=== PATIENT | male | born 1995 | race African-American/Black ===

== ENCOUNTER 2018-05-09 01:35 | Emergency (ER) | payer OTHER ==
[~2018-05-09] VITALS: Ht 175.3 cm; Wt 72.6 kg
[2018-05-09 01:45] VITALS: BP 120/66
[2018-05-09] MEDS ORDERED: BACTRIM DS TAB1 EAC1 ORAL (01:53)
[2018-05-09] MEDS ORDERED: MUPIROCIN22 GM TOPIC (01:53)
--- NOTE | 2018-05-09 01:54 | Emergency Room Report ---
History of Present Illness General Chief Complaint: Skin Rash/Abscess Source: Patient Present Illness HPI Is a 22-year-old male who is right-hand dominant. He presents with chief complaint of a possible bug bite to his right forearm. No sick for the last couple days but now swollen. Did not get to see her felt anything biting him. No fever chills but no drainage. Never had this problem before. Denies any other complaint. Minimal pain. [place] little itchy. Allergies: Uncoded Allergies: NUTS (Allergy, Unknown, 05/09/18) Patient History Past Medical History: see triage record, old chart reviewed Past Surgical History: none Pertinent Family History: none Social History: Denies: smoking Immunizations: other Reviewed Nursing Documentation: PMH: Agreed; PSxH: Agreed Nursing Documentation-PM Past Medical History: No Stated History Review of Systems Eye: Denies: eye pain, blurred vision ENT: Denies: ear pain, nose congestion, throat swelling Respiratory: Denies: cough, shortness of breath Cardiovascular: Denies: chest pain, palpitations Gastrointestinal: Denies: abdominal pain, diarrhea, nausea, vomiting Musculoskeletal: Denies: back pain, joint pain Skin: Denies: rash Neurological: Denies: headache, numbness Endocrine: Denies: increased thirst, increased urine Hematologic/Lymphatic: Denies: easy bruising All Other Systems: negative except mentioned in HPI Physical Exam Vital Signs Date Time Temp Pulse Resp B/P (MAP) Pulse Ox O2 Delivery O2 Flow Rate FiO2 05/09/18 01:42 98.6 67 16 120/66 98 98.6 vitals normal Sp02 EP Interpretation: reviewed, normal General Appearance: well appearing, no apparent distress, alert Head: normocephalic, atraumatic Eyes: bilateral eye PERRL, bilateral eye EOMI ENT: hearing grossly normal, normal pharynx Neck: full range of motion, supple, no meningismus Respiratory: chest non-tender, lungs clear, normal breath sounds Cardiovascular #1: regular rate, rhythm, no murmur Gastrointestinal: normal bowel sounds, non tender, no mass, no organomegaly, no bruit, non-distended Musculoskeletal: back normal, gait/station normal, normal range of motion, other - Right forearm: There is a raised area of about 4-5 cm with mild erythema. No fluctuant. No abscess seen. No crepitance. There is localized to the proximal forearm posteriorly. Full range of motion of the elbow and wrist. Sensation normal. Neurologic: alert, oriented x3 Psychiatric: mood/affect normal Skin: warm/dry Medical Decision Making Diagnostic Impression: Primary Impression: Cellulitis of forearm, right ER Course Patient with cellulitis to the right forearm. Most likely secondary to MRSA. No evidence of any abscess or necrotizing fasciitis. We'll discharge home. Last Vital Signs Date Time Temp Pulse Resp B/P (MAP) Pulse Ox O2 Delivery O2 Flow Rate FiO2 05/09/18 01:45 98.6 76 16 120/66 98 98.6 Status: improved Disposition: HOME, SELF-CARE Condition: Stable Scripts Mupirocin* (MUPIROCIN*) 22 Gm Oint...g. 1 APPLIC TOPIC THREE TIMES A DAY, #22 GM Prov: Shaheen Adams MD 05/09/18 Trimethoprim/Sulfamethoxazole 160/800* (BACTRIM DS TABLET*) 1 Each Tablet 1 TAB ORAL Q12H, #14 TAB 0 Refills Prov: Shaheen Adams MD 05/09/18 Additional Instructions: Follow-up with your doctor in 7 days. Return if worse. Clean area with hydrogen peroxide and then apply antibiotic ointment. Shaheen Adams MD May 09, 2018 01:54
[2018-05-09] MEDS ORDERED: Bactrim-DS 1 tab ORAL ONE (02:00)
[2018-05-09 02:05] VITALS: BP 120/66
== END 2018-05-09 02:06 | disposition home or self-care (01) ==
LOC: EMR 01:58
DX: L03.113 Cellulitis of right upper limb (principal)
CPT/HCPCS: 99283

== ENCOUNTER 2018-12-15 19:36 | Emergency (ER) | payer OTHER ==
[~2018-12-15] VITALS: Ht 175.3 cm; Wt 75.7 kg
[~2018-12-15 19:36] MED LIST: BACTRIM DS TAB1 EAC1 ORAL; MUPIROCIN22 GM TOPIC
--- NOTE | 2018-12-15 19:44 | NUR ---
ED Nurse Note: pt walked in c/o sore throat, headache and body aching x 1 day. temp 100.6 in triage. Pt is AO x 4times, c/o general weakness, on room air no distress. ERMD seen Pt at bedside.
[2018-12-15 19:56] VITALS: BP 128/57
[2018-12-15] MEDS ORDERED: Lidocaine 2% Visc 15ml soln ORAL ONE (20:15)
[2018-12-15] MEDS ORDERED: Acetaminophen 500mg (ES) tab ORAL ONE (20:15)
[2018-12-15] MEDS ORDERED: Dexamethasone 4mg/ml vial IM ONE (20:15)
--- NOTE | 2018-12-15 20:24 | Emergency Room Report ---
History of Present Illness General Chief Complaint: Sore Throat Source: Patient Present Illness HPI 23 YO Male presents to the ED C/O 04/27 in severity throat pain with tonsillar swelling and fevers x 2 days. Denies neck pain or stiffness. Reports CARDENAS, denies photophobia. Denies recent travel or ill contacts. Denies cough. pain exacerbated with eating and swallowing. Pt. reports generalized body aches and generalized fatigue. denies abdominal pain, nausea or vomiting. has been taking Motrin for pain and fever reduction how ever symptoms persist. Allergies: Uncoded Allergies: NUTS (Allergy, Unknown, 05/09/18) Patient History Past Medical History: see triage record Past Surgical History: none Pertinent Family History: none Reviewed Nursing Documentation: PMH: Agreed; PSxH: Agreed Nursing Documentation-PMH Past Medical History: No Stated History Review of Systems All Other Systems: negative except mentioned in HPI Physical Exam Vital Signs Date Time Temp Pulse Resp B/P (MAP) Pulse Ox O2 Delivery O2 Flow Rate FiO2 12/15/18 19:39 100.6 96 18 115/48 (70) 97 Room Air Sp02 EP Interpretation: reviewed, normal General Appearance: alert, GCS 15, non-toxic, mild distress Head: normocephalic, atraumatic Eyes: bilateral eye normal inspection, bilateral eye PERRL ENT: hearing grossly normal, normal voice, TMs + canals normal, uvula midline, moist mucus membranes, nasal congestion, tonsillar swelling, pharyngeal erythema , tonsillar exudate Neck: full range of motion, no meningismus, no bony tend Respiratory: lungs clear, normal breath sounds, no wheezing, speaking full sentences Cardiovascular #1: regular rate, rhythm Musculoskeletal: back normal, gait/station normal, normal range of motion, non- tender Neurologic: alert, oriented x3, responsive, motor strength/tone normal, sensory intact, speech normal, grossly normal Psychiatric: judgement/insight normal Skin: normal color, no rash, warm/dry, well hydrated Lymphatic: no adenopathy Medical Decision Making PA Attestation Dr. Mustafa is my supervising Physician whom patient management has been discussed with. Diagnostic Impression: Primary Impression: Pharyngitis, acute Qualified Codes: J02.0 - Streptococcal pharyngitis ER Course 23 YO Male presents to the ED C/O 04/27 in severity throat pain with tonsillar swelling and fevers x 2 days. Denies neck pain or stiffness. Reports CARDENAS, denies photophobia. Denies recent travel or ill contacts. Denies cough. pain exacerbated with eating and swallowing. Pt. reports generalized body aches and generalized fatigue. denies abdominal pain, nausea or vomiting. has been taking Motrin for pain and fever reduction how ever symptoms persist. Ddx considered but are not limited to: pharyngitis, strep, BANANA GRADER, ludwigs angina, URI Vital signs: Pt. has low grade fever and mild tachycardia H&PE are most consistent with: pharyngitis presumed strep. ORDERS: None required at this time as the diagnosis is clinical ED INTERVENTIONS: - Decadron 8mg - Tylenol 1g PO -Lidocaine PO DISCHARGE: At this time pt. is stable for d/c to home. Will provide printed patient care instructions, and any necessary prescriptions. Care plan and follow up instructions have been discussed with the patient prior to discharge. Last Vital Signs Date Time Temp Pulse Resp B/P (MAP) Pulse Ox O2 Delivery O2 Flow Rate FiO2 12/15/18 19:56 100.4 78 18 128/57 96 Room Air Status: improved Disposition: HOME, SELF-CARE Condition: Stable Scripts Acetaminophen* (TYLENOL EXTRA STRENGTH*) 500 Mg Tablet 500 MG ORAL Q6H PRN for Mild Pain/Temp > 100.5, #30 TAB 0 Refills Prov: Chata Conway 12/15/18 Lidocaine HCl 2% Viscous (Lidocaine HCl 2% Viscous) 100 Ml Solution 15 ML ORAL QID, #240 ML Prov: Chata Conway 12/15/18 Amoxicillin/Potassium Clav 875-125* (AUGMENTIN 875-125 TABLET*) 1 Each Tablet 1 TAB ORAL TWICE A DAY for 10 Days, #20 TAB Prov: Chata Conway 12/15/18 Patient Instructions: Strep Throat Additional Instructions: Take medications as directed. Follow up with a Primary Care Provider in 3-5 days, even if your symptoms have resolved. --Please review list of primary care clinics, if you do not already have a primary care provider Return sooner to ED if new symptoms occur, or current symptoms become worse. - Please note that this Emergency Department Report was dictated using [employer] finish technology software, occasionally this can lead to erroneous entry secondary to interpretation by the dictation equipment. Chata Conway December 15, 2018 20:24
[2018-12-15] MEDS ORDERED: TYLENOL EXTRA500 MG ORAL (20:27)
[2018-12-15] MEDS ORDERED: LIDOCAINE VISC100 ML ORAL (20:27)
[2018-12-15] MEDS ORDERED: AUGMENTIN 875-1 EAC1 ORAL (20:27)
[2018-12-15 20:45] VITALS: BP 128/57
--- NOTE | 2018-12-15 20:47 | NUR ---
ER DISCHARGE NOTE: Patient is cleared to be discharged per ERMD, pt is aox4, on room air, with stable vital signs. pt was given dc and prescription instructions, pt was able to verbalize understanding, pt id band and removed without complications. pt is able to ambulate with steady gait with mother. pt took all belongings.
== END 2018-12-15 20:47 | disposition home or self-care (01) ==
LOC: EMR 20:15
DX: J02.9 Acute pharyngitis, unspecified (principal); Z91.018 Allergy to other foods
CPT/HCPCS: 96372; 99283; J1100